=== PATIENT | female | born 1945 | race Caucasian/White ===

== ENCOUNTER 2021-06-04 10:52 | Outpatient (RCR) | payer MEDICARE, BC ==
[~2021-06-04 10:52] MED LIST: ELIQUIS5 MG PO; TRAMADOL HCL100 MG PO
== END 2021-06-08 ==
LOC: OT 10:52
PROVIDERS: ATTEND Orthopaedic Surgery
DX: S42.202D Unspecified fracture of upper end of left humerus, subsequent encounter for fracture with routine healing (principal); M25.512 Pain in left shoulder; M25.522 Pain in left elbow; M25.612 Stiffness of left shoulder, not elsewhere classified; M25.622 Stiffness of left elbow, not elsewhere classified; R53.1 Weakness

== ENCOUNTER → 2021-07-09 | Outpatient (RCR) | payer MEDICARE, BC | LOC: OT 06-11 09:53 | PROVIDERS: ATTEND Orthopaedic Surgery | DX: S42.202D Unspecified fracture of upper end of left humerus, subsequent encounter for fracture with routine healing (principal); M25.512 Pain in left shoulder; M25.522 Pain in left elbow; R53.1 Weakness; M25.612 Stiffness of left shoulder, not elsewhere classified; M25.622 Stiffness of left elbow, not elsewhere classified ==

== ENCOUNTER 2021-07-11 10:04 | Outpatient (RCR) | payer MEDICARE, BC | END 2021-08-08 | LOC: OT 10:04 | PROVIDERS: ATTEND Orthopaedic Surgery | DX: S42.202D Unspecified fracture of upper end of left humerus, subsequent encounter for fracture with routine healing (principal); M25.512 Pain in left shoulder; M25.522 Pain in left elbow; M25.612 Stiffness of left shoulder, not elsewhere classified; M25.622 Stiffness of left elbow, not elsewhere classified; R53.1 Weakness ==